=== PATIENT | female | born 1960 | race Caucasian/White ===

== ENCOUNTER 2023-08-01 06:00 | Inpatient (IN) | payer MEDICAID, OTHER ==
[2023-08-01] MEDS: methylPREDNISolone Sodium Succinate 125 MG/2 ML SDV IVPUSH ONE (06:47)
[2023-08-01] MEDS: Sodium Chloride 0.9% 10 ML Syringe FLUSH PRN (06:48)
[2023-08-01 06:49] LABS: HEMATOCRIT 37.9 % (37.0-47.0); HEMOGLOBIN 12.5 g/dL (12.0-16.0); MEAN CORPUSCULAR VOLUME 87.9 fL (80-100); PLATELET COUNT,PLT 248 10^3/uL (150-450); RED BLOOD CELL COUNT 4.31 10^6/uL (4.2-5.4); WHITE BLOOD CELL COUNT,WBC 10.3 10^3/uL (5.0-10.0)
[2023-08-01] MEDS: Albuterol/Ipratropium 3.0-0.5 MG/3 ML Neb Soln NEB ONE ×3 (07:00→07:28)
[2023-08-01 07:09] LABS: ALBUMIN 3.5 g/dL (3.4-5.0); ANION GAP 12.4 mEq/L (7-13); BILIRUBIN TOTAL 0.3 mg/dL (0.2-1.0); BUN/CREATININE RATIO 11.8 (No establ ref range); CALCIUM 8.6 mg/dL (8.5-10.1); CREATININE 0.93 mg/dL (0.55-1.02); EST CRCL DRUG DOSING (CG) 58.72 mL/min; POTASSIUM,K 3.4 mmol/L (3.5-5.1); PROTEIN TOTAL,TP 7.1 g/dL (6.4-8.2)
[2023-08-01 07:34] LABS: LACTIC ACID 1.1 mmol/L (0.4-2.0)
[2023-08-01 07:35] LABS: BASOPHILS PERCENT AUTO 0.5 % (0.0-1.0); EOSINOPHILS PERCENT AUTO 10.1 % (1.0-3.0); LYMPHOCYTES PERCENT AUTO 17.1 % (20.5-50.1); MONOCYTES PERCENT AUTO 5.4 % (2-8); NEUTROPHILS PERCENT AUTO 66.9 % (42.2-75.2); SEG NEUTROPHILS PERCENT MAN 68 % (42-75)
[2023-08-01 07:36] LABS: BAND PERCENT MAN 1 %; BASOPHILS PERCENT MAN 1; EOSINOPHILS PERCENT MAN 10 % (1-3); LYMPHOCYTES PERCENT MAN 14 % (20-50); MONOCYTES PERCENT MAN 6 % (2-8)
[2023-08-01 07:45] LABS: CORONAVIRUS COVID-19 NAA NEGATIVE (NEGATIVE); INFLUENZA A NAA NEGATIVE (NEGATIVE); INFLUENZA B NAA NEGATIVE (NEGATIVE); RESPIRATORY SYNCYTIAL VIR NAA NEGATIVE (NEGATIVE)
[2023-08-01] MEDS: diphenhydrAMINE 50 MG/ML SDV IVPUSH ONE (07:48)
[2023-08-01] MEDS: Cefepime 2 GM Vial IVPUSH ONE (07:48)
[2023-08-01] MEDS: Benzonatate 100 MG Cap PO ONE (07:49)
[2023-08-01] MEDS: Acetaminophen 500 MG Tab PO ONE (07:49)
[2023-08-01] MEDS: Sodium Chloride 0.9% 1,000 ML IV ONE ×2 (07:50→08:28)
[2023-08-01] MEDS ORDERED: Ondansetron 4 MG/2 ML SDV IVPUSH PRN (09:57)
[2023-08-01] MEDS ORDERED: Docusate Sodium 100 MG Cap PO PRN (09:57)
[2023-08-01] MEDS ORDERED: Bisacodyl 5 MG Tab PO PRN (09:57)
[2023-08-01] MEDS ORDERED: Melatonin 3 MG Tab PO PRN (10:01)
[2023-08-01] MEDS ORDERED: Glucagon,Human Recombinant 1 MG Vial IM PRN (10:01)
[2023-08-01] MEDS ORDERED: 50% Dextrose in Water 50 ML Syringe IVPUSH PRN (10:01)
[2023-08-01] MEDS: Acetaminophen/HYDROcodone 325-5 MG Tab PO PRN ×2 (10:15→19:37)
[2023-08-01] MEDS: methylPREDNISolone Sodium Succinate 40 MG/1 ML SDV IVPUSH SCH (11:29)
[2023-08-01] MEDS: Azithromycin 250 MG Tab PO ONE (11:29)
[2023-08-01] MEDS: guaiFENesin/Dextromethorphan 100-10 MG/5 ML Soln 5 ML Cup PO PRN (11:36)
[2023-08-01] MEDS: Tiotropium Bromide 4 GM Inhalation Spray (2.5mcg/1 dose; 10 doses) INH SCH (12:03)
[2023-08-01] MEDS: Insulin Lispro 100 Units/ML 3 ML Vial SUBCUT SCH (12:22)
[2023-08-01] MEDS: Benzonatate 100 MG Cap PO PRN (16:48)
[2023-08-01] MEDS: Budesonide 0.5 MG/2 ML Neb Susp NEB SCH (18:06)
[2023-08-01] MEDS: Metoprolol Succinate 50 MG Tab.ER PO SCH (21:15)
[2023-08-01] MEDS: Montelukast 10 MG Tab PO SCH (21:16)
[2023-08-01] MEDS: Venlafaxine 150 MG Cap.ER PO SCH (21:16)
[2023-08-01] MEDS: hydrOXYzine HCl 25 MG Tab PO SCH (21:16)
[2023-08-01] MEDS: metFORMIN 500 MG Tab PO SCH (21:16)
[2023-08-01] MEDS: Cyclobenzaprine 10 MG Tab PO SCH (21:17)
[2023-08-01] MEDS: Ibuprofen 800 MG Tab PO SCH (21:18)
[2023-08-01] MEDS: amLODIPine 5 MG Tab PO SCH (21:18)
[2023-08-01] MEDS: Pravastatin 20 MG Tab PO SCH (21:18)
[2023-08-01] MEDS: Gabapentin 400 MG Cap PO SCH (21:19)
[2023-08-02] MEDS: Omeprazole 20 MG Cap.CR PO SCH (06:15)
[2023-08-02] MEDS: cefTRIAXone 2 GM Vial IVPUSH SCH (06:17)
[2023-08-02 06:38] LABS: HEMATOCRIT 38.3 % (37.0-47.0); HEMOGLOBIN 12.5 g/dL (12.0-16.0); MEAN CORPUSCULAR HEMOGLOBIN 28.6 pg (27.0-34.0); MEAN CORPUSCULAR HGB CONC 32.6 g/dL (33.0-35.0); MEAN CORPUSCULAR VOLUME 87.6 fL (80-100); RED BLOOD CELL COUNT 4.37 10^6/uL (4.2-5.4); WHITE BLOOD CELL COUNT,WBC 17.1 10^3/uL (5.0-10.0)
[2023-08-02] MEDS: Albuterol/Ipratropium 3.0-0.5 MG/3 ML Neb Soln NEB PRN (06:39)
[2023-08-02 06:58] LABS: ANION GAP 15.8 mEq/L (7-13); CALCIUM 9.2 mg/dL (8.5-10.1); CREATININE 1.03 mg/dL (0.55-1.02); EST CRCL DRUG DOSING (CG) 53.01 mL/min; POTASSIUM,K 3.8 mmol/L (3.5-5.1)
[2023-08-02] MEDS: Lisinopril 20 MG Tab PO SCH (08:21)
[2023-08-02] MEDS: Azithromycin 250 MG Tab PO SCH (08:23)
[2023-08-02] MEDS: Potassium Chloride 10 MEQ Tab.ER PO SCH (08:24)
[2023-08-02] MEDS: Enoxaparin 40 MG/0.4 ML Syringe SUBCUT SCH (08:26)
== END 2023-08-02 13:15 | disposition home or self-care (01) | DRG 872 ==
LOC: DL.ED 06:00 → DL.MS 08:19
PROVIDERS: ADMIT Internal Medicine; ATTEND Internal Medicine
DX: A41.9 Sepsis, unspecified organism (principal); J44.1 Chronic obstructive pulmonary disease with (acute) exacerbation; J44.0 Chronic obstructive pulmonary disease with (acute) lower respiratory infection; J45.901 Unspecified asthma with (acute) exacerbation; J20.9 Acute bronchitis, unspecified; F41.9 Anxiety disorder, unspecified; F32.A Depression, unspecified; E66.9 Obesity, unspecified; G89.29 Other chronic pain; M54.50 Low back pain, unspecified; Z88.1 Allergy status to other antibiotic agents; Z88.0 Allergy status to penicillin; Z77.22 Contact with and (suspected) exposure to environmental tobacco smoke (acute) (chronic); Z68.32 Body mass index [BMI] 32.0-32.9, adult; Z86.16 Personal history of COVID-19; Z98.890 Other specified postprocedural states; Z79.899 Other long term (current) drug therapy; Z79.51 Long term (current) use of inhaled steroids; E11.9 Type 2 diabetes mellitus without complications; Z79.84 Long term (current) use of oral hypoglycemic drugs
CPT/HCPCS: 0241U; 36415; 71046; 80048; 80053; 82947; 83605; 84145; 84484; 85025; 85027; 87040; 93005; 93010; 94640; 94664; 96365; 96375; 99223; 99239; 99285; 99285-25; A9270-GY; J0692; J0696; J1200; J1650; J1815-GY; J2920; J2930; J3370; J3490; J7030; J7050; J7620-GY

== ENCOUNTER 2023-11-29 17:50 | Emergency (ER) | payer OTHER ==
[2023-11-29] MEDS ORDERED: Dicyclomine 10 MG Cap PO ONE (17:51)
[2023-11-29] MEDS ORDERED: Dicyclomine 10 MG Cap PO PRN (20:15)
[2023-11-29] MEDS ORDERED: Dicyclomine 10 MG Cap ONE (20:29)
== END 2023-11-29 20:44 | disposition home or self-care (01) ==
LOC: DL.ED 17:50
DX: F11.90 Opioid use, unspecified, uncomplicated (principal); I10 Essential (primary) hypertension; J44.9 Chronic obstructive pulmonary disease, unspecified; Z86.16 Personal history of COVID-19; Z79.84 Long term (current) use of oral hypoglycemic drugs; Z79.899 Other long term (current) drug therapy; Z88.1 Allergy status to other antibiotic agents; Z88.0 Allergy status to penicillin
CPT/HCPCS: 99282; A9270-GY

== ENCOUNTER 2024-02-23 18:27 | Emergency (ER) | payer OTHER, MEDICAID ==
[2024-02-23] MEDS ORDERED: Sodium Chloride 0.9% 10 ML Syringe FLUSH PRN (18:59)
[2024-02-23 19:15] LABS: BASOPHILS PERCENT AUTO 0.4 % (0.0-1.0); EOSINOPHILS PERCENT AUTO 3.6 % (1.0-3.0); HEMATOCRIT 40.8 % (37.0-47.0); HEMOGLOBIN 13.6 g/dL (12.0-16.0); LYMPHOCYTES PERCENT AUTO 15.4 % (20.5-50.1); MEAN CORPUSCULAR HEMOGLOBIN 29.1 pg (27.0-34.0); MEAN CORPUSCULAR HGB CONC 33.3 g/dL (33.0-35.0); MEAN CORPUSCULAR VOLUME 87.4 fL (80-100); NEUTROPHILS PERCENT AUTO 75.6 % (42.2-75.2); PLATELET COUNT,PLT 266 10^3/uL (150-450); RED BLOOD CELL COUNT 4.67 10^6/uL (4.2-5.4); WHITE BLOOD CELL COUNT,WBC 11.3 10^3/uL (5.0-10.0)
[2024-02-23] MEDS: Ondansetron 4 MG/2 ML SDV IVPUSH ONE ×2 (19:15→22:35)
[2024-02-23] MEDS: Sodium Chloride 0.9% 1,000 ML IV ONE (19:50)
[2024-02-23 20:29] LABS: A/G RATIO 1.1; ALANINE AMINOTRANSFERASE,ALT 22 U/L (14-59); ALBUMIN 3.7 g/dL (3.4-5.0); ALKALINE PHOSPHATASE 130 U/L (46-116); ANION GAP 17.2 mEq/L (7-13); ASPARTATE AMNIOTRANSFERASE,AST 12 U/L (15-37); BILIRUBIN TOTAL 0.6 mg/dL (0.2-1.0); BLOOD UREA NITROGEN,BUN 11 mg/dL (7-18); BUN/CREATININE RATIO 12.4 (No establ ref range); CALCIUM 8.9 mg/dL (8.5-10.1); CARBON DIOXIDE,CO2 24 mmol/L (21-32); CHLORIDE,CL 103 mmol/L (98-107); CREATININE 0.89 mg/dL (0.55-1.02); ESTIMATED GFR 73 mL/min (>=60); GLUCOSE RANDOM 220 mg/dL (70-99); POTASSIUM,K 3.2 mmol/L (3.5-5.1); PROTEIN TOTAL,TP 7.1 g/dL (6.4-8.2); SODIUM,NA 141 mmol/L (136-145)
[2024-02-23] MEDS: Iopamidol 612 MG/ML 100 ML Bottle IVPUSH ONE (20:30)
[2024-02-23] MEDS: Potassium Chloride 10 MEQ in Premix Bag 1 BAG IV ONE (20:38)
[2024-02-23] MEDS: Acetaminophen/HYDROcodone 325-5 MG Tab PO ONE (21:52)
[2024-02-23] MEDS: Potassium Chloride 10 MEQ Tab.ER PO ONE (22:37)
[2024-02-23] MEDS: Loperamide 2 MG Cap PO ONE (23:23)
[2024-02-23] MEDS: Take Home: Ondansetron 4 MG Tab.DIS, 5 Tab Pack PO ONE (23:24)
== END 2024-02-23 23:38 | disposition home or self-care (01) ==
LOC: DL.ED 18:27
DX: K52.9 Noninfective gastroenteritis and colitis, unspecified (principal); R11.2 Nausea with vomiting, unspecified; E86.0 Dehydration; I10 Essential (primary) hypertension; E11.9 Type 2 diabetes mellitus without complications; J44.89 Other specified chronic obstructive pulmonary disease; E66.01 Morbid (severe) obesity due to excess calories; Z86.16 Personal history of COVID-19; Z88.0 Allergy status to penicillin; Z88.1 Allergy status to other antibiotic agents; Z88.8 Allergy status to other drugs, medicaments and biological substances; Z79.51 Long term (current) use of inhaled steroids; Z79.84 Long term (current) use of oral hypoglycemic drugs; Z79.899 Other long term (current) drug therapy
CPT/HCPCS: 36415; 74177; 80053; 83605; 83735; 85025; 96361; 96365; 96375; 96376; 99284; 99284-25; A9270-GY; J2405; J3480; J7030; Q0162; Q9967